=== PATIENT | female | born 1960 | race Caucasian/White ===

== ENCOUNTER 2019-09-12 11:57 | Day surgery (SDC) | payer OTHER ==
[~2019-09-12] VITALS: Ht 154.9 cm; Wt 116.3 kg
[~2019-09-12 11:57] MED LIST: ASPI-1182 PO; ATOR20TA65 PO; HYDR25TA PO; LISI-618 PO; LOPE-202 PO; METF-960 PO; OMEP20 PO; ONDA4TAB96 PO; SODIUM CHLORIDE 0.9% 1,000 ML ONE
[2019-09-12] MEDS ORDERED: LIDOCAINE/PF 2% 5 ML SYRINGE IVP ONE (11:58)
[2019-09-12] MEDS ORDERED: PROPOFOL 1% 20 ML VIAL IVP ONE (11:58)
[2019-09-12] MEDS ORDERED: SODIUM CHLORIDE 0.9% 1,000 ML IV ONE (12:30)
[2019-09-12 12:40] LABS: GLUCOMETER DEV NAME(LOC) SDS.; GLUCOSE,POINT OF CARE 151 MG/DL (70-110)
== END 2019-09-12 16:07 | disposition home or self-care (01) ==
LOC: SURGERY 11:57
PROVIDERS: ATTEND Student in an Organized Health Care Education/Training Program
DX: R11.0 Nausea (principal); K20.8 Other esophagitis; K44.9 Diaphragmatic hernia without obstruction or gangrene; K22.8 Other specified diseases of esophagus; K31.7 Polyp of stomach and duodenum; I10 Essential (primary) hypertension; E78.00 Pure hypercholesterolemia, unspecified; Z79.899 Other long term (current) drug therapy; Z96.649 Presence of unspecified artificial hip joint
CPT/HCPCS: 43239; 82962; 88305; 88312; C1769; J2704; J3490; J7030

== ENCOUNTER 2019-11-15 08:47 | Day surgery (SDC) | payer OTHER ==
[~2019-11-15] VITALS: Ht 157.5 cm; Wt 113.2 kg
[~2019-11-15 08:47] MED LIST changes: +ASPI-1111 PO; -ASPI-1182 PO
[2019-11-15] MEDS ORDERED: SODIUM CHLORIDE 0.9% 1,000 ML IV ONE (09:00)
[2019-11-15 09:34] LABS: GLUCOMETER DEV NAME(LOC) SDS.; GLUCOSE,POINT OF CARE 171 MG/DL (70-110)
[2019-11-15] MEDS ORDERED: LIDOCAINE/PF 2% 5 ML SYRINGE IVP ONE (12:00)
[2019-11-15] MEDS ORDERED: PROPOFOL 1% 20 ML VIAL IVP ONE (12:00)
== END 2019-11-15 12:10 | disposition home or self-care (01) ==
LOC: SURGERY 08:47
PROVIDERS: ATTEND Student in an Organized Health Care Education/Training Program
DX: K31.7 Polyp of stomach and duodenum (principal); K44.9 Diaphragmatic hernia without obstruction or gangrene; K31.89 Other diseases of stomach and duodenum; E11.9 Type 2 diabetes mellitus without complications; E78.00 Pure hypercholesterolemia, unspecified; I10 Essential (primary) hypertension; Z96.649 Presence of unspecified artificial hip joint; Z79.899 Other long term (current) drug therapy
CPT/HCPCS: 43239; 82962; 88305; 88312; 88313; C1769; J2704; J3490; J7030

== ENCOUNTER → 2020-08-21 | Day surgery (SDC) | payer OTHER ==
[2020-08-20 13:56] LABS: COVID AG,FIA SOURCE NASOPHARYNGEAL
[~2020-08-21] VITALS: Ht 157.5 cm; Wt 113.2 kg
[~2020-08-21] MED LIST changes: +IXEK80AU2 SQ; +LIDOCAINE/PF 2% 5 ML VIAL IM ONE; +PROPOFOL 1% 20 ML VIAL IVP ONE; +SODIUM CHLORIDE 0.9% 1,000 ML IV ONE
[2020-08-21 10:38] LABS: GLUCOMETER DEV NAME(LOC) SDS.; GLUCOSE,POINT OF CARE 229 MG/DL (70-110)
== END | disposition home or self-care (01) ==
LOC: SURGERY 09:55
PROVIDERS: ATTEND Student in an Organized Health Care Education/Training Program
DX: K31.7 Polyp of stomach and duodenum (principal); K29.50 Unspecified chronic gastritis without bleeding; K31.89 Other diseases of stomach and duodenum; K22.2 Esophageal obstruction; I10 Essential (primary) hypertension; K21.9 Gastro-esophageal reflux disease without esophagitis; E78.2 Mixed hyperlipidemia; E66.01 Morbid (severe) obesity due to excess calories; E11.9 Type 2 diabetes mellitus without complications; Z79.899 Other long term (current) drug therapy; Z98.890 Other specified postprocedural states; Z96.649 Presence of unspecified artificial hip joint
CPT/HCPCS: 43239; 43251; 82962; 87426; 88305; 88312; 88313; C9803; J2704; J3490; J7030

== ENCOUNTER 2021-01-15 11:33 | Day surgery (SDC) | payer OTHER ==
[2021-01-14 15:36] LABS: COVID AG,FIA SOURCE NASOPHARYNGEAL
[~2021-01-15] VITALS: Ht 154.9 cm; Wt 109.1 kg
[~2021-01-15 11:33] MED LIST changes: -ASPI-1111 PO; +ASPI-1444 PO; -LIDOCAINE/PF 2% 5 ML VIAL IM ONE; -LISI-618 PO; +LISI20TA24 PO; -PROPOFOL 1% 20 ML VIAL IVP ONE
[2021-01-15] MEDS ORDERED: PROPOFOL 1% 20 ML VIAL IVP ONE (11:34)
[2021-01-15] MEDS ORDERED: LIDOCAINE/PF 2% 5 ML SYRINGE IVP ONE (11:34)
[2021-01-15 12:03] LABS: GLUCOMETER DEV NAME(LOC) SDS.; GLUCOSE,POINT OF CARE 160 MG/DL (70-110)
== END 2021-01-15 14:10 | disposition home or self-care (01) ==
LOC: SURGERY 11:33
PROVIDERS: ATTEND Student in an Organized Health Care Education/Training Program
DX: K22.2 Esophageal obstruction (principal); K44.9 Diaphragmatic hernia without obstruction or gangrene; K25.9 Gastric ulcer, unspecified as acute or chronic, without hemorrhage or perforation; K31.89 Other diseases of stomach and duodenum; Z91.040 Latex allergy status; Z98.890 Other specified postprocedural states; Z96.60 Presence of unspecified orthopedic joint implant
CPT/HCPCS: 43239; 82962; 87426; 88305; 88312; C1769; C9803; J2704; J3490; J7030